=== PATIENT | female | born 1985 ===

== ENCOUNTER → 2021-08-05 07:37 | Outpatient (CLI) | payer OTHER, MEDICAID, SELFPAY ==
--- NOTE | 2021-08-05 07:38 | DI.US.S_ITS ---
PROCEDURE: US OB >= 14 WEEKS FETUS INDICATIONS: ANATOMY SURVEY OUTSIDE/PRIOR DATING DATA: Last menstrual period (LMP): 02/28/2021. LMP-based estimated date of delivery (KHOA): 12/05/2021. First dating scan (date and location): 08/05/2021. Estimated date of delivery (KHOA) from first dating scan: 11/30/2021. TECHNIQUE: Real-time scanning was performed of the fetus, with image documentation and biometric measurements. Endovaginal scanning: No COMPARISON: None. FINDINGS: General: A single living intrauterine gestation is present. Presentation: Transverse. Placenta: Placental position is fundal , without previa. Amniotic fluid index: 16.5 cm, normal range is 5-24 cm. . heart rate: 155 beats per minute. Maternal cervical canal: 6.6 cm long. Normal lower limit is 2.5 cm. biometrics: Biparietal diameter: 56 mm; 23 weeks 1 day Head circumference: 210 mm; 23 weeks 1 day Abdominal circumference: 188 mm; 23 weeks 4 days Femur length: 41 mm; 23 weeks 2 days Composite gestational age from present scan: 23 weeks 2 days Estimated weight and percentile: 594 g, which is at the 84th percentile for gestational age Anatomic survey: Neuro: Ventricles are non-dilated at less than 10 mm. Cisterna magna is normal at 3-11 mm. Cerebellum is normal in size and morphology. Nuchal skin fold: Normal at less than 6 mm between 14-21 weeks gestational age. Face: Nose and lips, facial profile are normal. Spine: No evidence for spina bifida. Heart: 4-chambered heart is present, with normal ventricular outflow tracts. Diaphragm: Diaphragm is intact. Stomach: Left-sided stomach is present. Kidneys: No hydronephrosis. Normal is less than 5 mm in 2nd trimester, less than 7 mm in 3rd trimester. Cord: 3-vessel cord has orthotopic insertion. Bladder: Normal in size. Extremities: All 4 extremities identified. IMPRESSION: 1. Single living intrauterine gestation. 2. No anomalies identified. We strive to produce accurate, complete, and clear reports of imaging services. To assist us in improving patient care, this report was composed using standard report templates and voice recognition software. Therefore, it may contain abnormal punctuation, insertions and/or omissions. Occasional wrong-word or sound-alike substitutions may occur. Though we review the report and make efforts to correct it, we do recommend that the report be read carefully in proper context to recognize any text inaccuracies. Dictated by: Lucio Morales M.D. on 08/08/2021 at 13:30 Approved by: Lucio Morales M.D. on 08/08/2021 at 14:11
== END ==
PROVIDERS: Referring Provider Obstetrics & Gynecology; Visit Provider Obstetrics & Gynecology
DX: Z36.89 Encounter for other specified antenatal screening (principal); Z3A.23 23 weeks gestation of pregnancy
CPT/HCPCS: 76811

== ENCOUNTER → 2021-08-31 09:10 | Outpatient (CLI) | payer OTHER, MEDICAID, SELFPAY ==
[2021-08-31 10:47] LABS: Hematocrit 29.7 % (36-46); Hemoglobin 9.9 g/dL (12.0-16.0)
[2021-08-31 11:29] LABS: GTT (PREG) 1 Hour PP 50gm Dose 146 mg/dL (76-139)
== END ==
PROVIDERS: Referring Provider Obstetrics & Gynecology; Visit Provider Obstetrics & Gynecology
DX: Z34.82 Encounter for supervision of other normal pregnancy, second trimester (principal); Z3A.26 26 weeks gestation of pregnancy
CPT/HCPCS: 36415; 82950; 85014; 85018

== ENCOUNTER → 2021-09-06 07:21 | Outpatient (CLI) | payer OTHER, MEDICAID, SELFPAY ==
[2021-09-06 09:47] LABS: Glucose Fasting Gestational 86 mg/dL (76-95)
[2021-09-06 10:47] LABS: Glucose 1 Hour Gest 148 mg/dL (76-180)
[2021-09-06 10:52] LABS: Glucose 2 Hour Gest 145 mg/dL (76-155)
[2021-09-06 11:03] LABS: Glucose Tol Interp,Gestational INTERPRETATION
[2021-09-06 12:51] LABS: Glucose 3 Hour Gest 107 mg/dL (76-140)
== END ==
PROVIDERS: Referring Provider Obstetrics & Gynecology; Visit Provider Obstetrics & Gynecology
DX: Z34.82 Encounter for supervision of other normal pregnancy, second trimester (principal); R73.09 Other abnormal glucose; Z3A.26 26 weeks gestation of pregnancy
CPT/HCPCS: 36415; 82951; 82952

== ENCOUNTER → 2021-11-08 09:02 | Outpatient (CLI) | payer OTHER, MEDICAID, SELFPAY ==
[2021-11-09 09:32] LABS: Strep Grp B PCR NEG for Grp B Strep
== END ==
PROVIDERS: PCP Pediatrics; Visit Provider Obstetrics & Gynecology
DX: Z34.83 Encounter for supervision of other normal pregnancy, third trimester (principal); Z3A.36 36 weeks gestation of pregnancy
CPT/HCPCS: 87653

== ENCOUNTER → 2021-11-15 09:07 | Outpatient (CLI) | payer OTHER, MEDICAID, SELFPAY | PROVIDERS: PCP Pediatrics; Visit Provider Obstetrics & Gynecology | DX: Z34.83 Encounter for supervision of other normal pregnancy, third trimester (principal) | CPT/HCPCS: 87086 ==

== ENCOUNTER 2021-11-28 05:45 | Inpatient (IN) | payer OTHER, MEDICAID, SELFPAY ==
--- NOTE | 2021-11-27 20:10 | P.HPOB_ITS ---
OB HPI Date/Time Date of admission: 11/28/21 Date Patient Seen: 11/28/21 Time Patient Seen: 07:15 History of Present Condition Chief complaint: Repeat : 2 Para: 1 Estimated Date of Delivery: 12/05/21 Estimated Gestational Age (weeks): 39+0 Narrative: Fadumo Power is a 35 year old , KHOA 12/05/2021 admitted now at 39+0 weeks EGA for repeat section. course has been complicated by maternal obesity with a TWG of only 2.2# but has otherwise been unremarkable. Dates are firm and confirmed by first trimester US. GBS is negative. Indications Operative indications ( section): previous uterine surgery History of Present care: good care and other (Transferred care [facility] at 22 weeks EGA) Dating criteria: LMP confirmed by 1st trimester US Ultrasounds: normal 1st trimester US and normal mid trimester US Obstetrical complications: none Medical complications: none Preadmission Labs Blood type: A (+) positive -: Antibody screen: negative, GBS status: negative, HBsAG: negative, HIV: negative and RPR/VDLR: negative -: Chlamydia screen: not detected and Gonorrhea screen: not detected -: Rubella: immune and Varicella: immune HCT: 29.7 HCAB: negative PAP: Normal Quad screen: Normal 1 hr GTT: 146 3 hr GTT: 1 hr (148), 2 hr (145) and 3 hr (107) Fasting blood glucose: 86 Prior (ies) History: C/S x 1 Evaluation Evaluation Baseline heart rate: 145 Variability: Moderate (11-25) monitor accelerations: Present Monitor Decelerations: Absent Category of Tracing: Reactive Status: Category l PFSH Medical History Chicken pox COVID-19 Morbid obesity with BMI of 50.0-59.9, adult Obesity (BMI 35.0-39.9 without comorbidity) Surgical History History of (~02/10/15) Social History marital status: number of children: 1 household members: spouse and children lives independently: Yes housing: house education level: college occupational status: previously employed current occupational exposures/hazards: No special iram needs: No seatbelt use: always water heater temp set < 120 deg: Yes (Will set when they get into new house) working smoke detector in home: Yes fire extinguisher in home: Yes carbon monox detector in home: Yes firearms in home: No do you feel safe at home: Yes Smoking Status: Former smoker Tobacco: How many years used: 7 quit status: quit date established second hand exposure: No alcohol intake: current substance use type: marijuana during the past year weight has: decreased > 10 lbs well-balanced diet: about half the time daily servings fruits/ve-4 caffeine: No Type(s) of exercise: walking Meds Home Medications and Allergies Home Medications Medication Instructions Recorded Confirmed Type ferrous sulfate 324 mg (65 mg 324 mg PO DAILY anemia #30 tabs 10/25/21 11/23/21 Rx iron) tablet,delayed release prenat.vits,jennifer,[id number] 1 tab PO DAILY #90 tabs 10/25/21 11/23/21 Rx Allergies Allergy/AdvReac Type Severity Reaction Status Date / Time No Known Drug Allergies Allergy Verified 11/28/21 06:10 Review of Systems Review of Systems Narrative: Problem-specific ROS positives included in HPI OB Exam HENMT Head: normal to inspection, normocephalic and atraumatic Eyes General: appearance normal, both eyes and all related structures Resp Effort & Inspection: normal respiratory effort and able to speak in complete sentences Auscultation: clear to auscultation bilaterally Cardio Rate: regular rate Rhythm: regular rhythm Heart Sounds: S1 normal, S2 normal and no murmurs Extremities Lower extremity: Yes normal to inspection GI Inspection: normal to inspection Palpation: Yes soft and Yes no hepatosplenomegaly Uterus Location (Fundal Height): 38 Presentation: vertex Estimated Weight (lbs): 8 Objective Labs Result Diagrams: 11/28/21 05:45 Assessment and Plan Assessment and Plan Assessment and Plan narrative: ASSESSMENT 1. Intrauterine , 39+0 wks EGA 2. Prior section x 1 PLAN 1. Admit for repeat cesaren section 2. See admission orders
[2021-11-28 07:01] LABS: Add Manual Diff / Slide Review NO; Basophils Absolute Auto 200 /uL (0-100); Basophils Percent Auto 1.2 % (0-2); Eosinophils Absolute Auto 300 /uL (0-450); Eosinophils Percent Auto 1.9 % (2-4); Hematocrit 30.5 % (36-46); Hemoglobin 9.9 g/dL (12.0-16.0); Lymphocytes Absolute Auto 2700 /uL (1100-4500); Lymphocytes Percent Auto 20.9 % (25-40); Mean Corpuscular HGB Conc 32.4 % (30-36); Mean Corpuscular Hemoglobin 24.6 PG (26-34); Monocytes Absolute Auto 600 /uL (0-900); Monocytes Percent Auto 4.7 % (3-14); Neutrophils Absolute Auto 9400 /uL (1500-7000); Neutrophils Percent Auto 71.3 % (50-75); Platelet Count 377 X10^3/uL (150-400); Red Blood Cell Count 4.02 X10^6/uL (4.0-5.2); Red Cell Distribution Width 17.5 % (11.6-14.8); White Blood Cell Count 13.2 X10^3/uL (4.5-11.0)
--- NOTE | 2021-11-28 07:48 | PM.PREOP ---
Pre-operative Note COVID-19 COVID-19 status: Negative Result date/Date tested (Pos, Neg/Pending): 11/28/21 Criteria for continued procedure: Non-surgical alternatives not available or appropriate per current SOC Interval Note History & Physical reviewed/Exam performed by Physician: Yes Changes to H&P: No
[2021-11-28 07:51] LABS: COVID19 -Nasal RAPID Negative (Negative)
[2021-11-28] MEDS: CEFAZOLIN VIAL 1 GM in SODIUM CHLORIDE 0.9% 100 ML IV (08:05)
[2021-11-28] MEDS: CEFAZOLIN 2 GM/100 ML PREMIX 100 ML IV (08:05)
--- NOTE | 2021-11-28 08:49 | SUR.OPER ---
Supine on padded OR bed, head on pillow, arms secured on padded arm boards at <90 degrees abduction, legs uncrossed, safety belt at thigh, tape over blanket over lower legs.
[2021-11-28] MEDS: ACETAMINOPHEN IV 1,000 MG/100 ML VIAL 400 MG IV (09:26)
[2021-11-28] MEDS: LACTATED RINGERS 1,000 ML 100 ML IV (09:32)
[2021-11-28 09:45] VITALS: BP 129/64; PULSE 90; RESP 12; TEMP 36.4; O2SAT 100
--- NOTE | 2021-11-28 09:48 | PM.OBCS.1 ---
Operative Date/Time/Diagnoses Date of procedure: 11/28/21 Time of procedure: 08:30 Pre-op diagnosis: Intrauterine gestation, 39+0 weeks EGA Prior section Post-op diagnosis: same Procedure & Clinicians Procedure: Repeat section, low transverse cervical Same procedure as scheduled: Yes Indications: Fadumo Power is a 35 year old , KHOA 12/05/2021 admitted now at 39+0 weeks EGA for repeat section.? course has been complicated by maternal obesity with a TWG of only 2.2# but has otherwise been unremarkable.? Dates are firm and confirmed by first trimester US.? GBS is negative. Surgeon: Cricket Montemayor Shower Screen Installer: Mer Pulliam Reason for Shower Screen Installer: Shower Screen Installer required for the safe, effective, and timely completion of this surgery. Anesthesia Type: Spinal Operative Notes Findings: Viable male infant BW 3620 gms. (7 lbs. 15,7 oz.), Apgars 7/9, delivered from the vertex presentation. Normal gravid anatomy. Closure Type: primary Specimen(s): cord blood Intraoperative meds administered: Ketorolac, Methergine, Pitocin and Tranexamic acid Applied: Catheter Estimated Blood Loss (mL): 800 Blood products transfused: none Procedure in detail: With her informed written consent, the patient was taken to the operating room and placed in the supine position for a repeat section procedure, for the indication(s) above. The abdomen was prepped and draped in the usual manner for section and a pre-surgical timeout was taken per [facility] OR protocol. Once effective anesthesia was confirmed, a 15 cm transverse Pfannenstiel incision was made in the skin and taken down through the subcutaneous tissues to the deep fascia. The deep fascia was incised transversely, the rectus abdominal eyes bluntly and sharply, and the peritoneal cavity entered without difficulty. The lower uterine segment was visualized and the position/presentation palpated. A transverse incision at or above the vesicouterine reflection was made with Metzenbaum scissors and transverse hysterotomy performed near the midline. Amniotomy revealed clear fluid. The incision was extended bilaterally with digital traction and the infant was delivered without difficulty from the vertex presentation. The infant was vigorous and cord clamping delayed for 60 seconds. The placenta was delivered intact using gentle cord traction and fundal massage.The uterine cavity was then cleared of any clot/debris first with a sloppy wet lap tape followed by a dry lap tape. Ring forceps were then applied to the angles and the midline of the incised MARYAM. A primary closure of the uterus was then accomplished with #1 CCGS in a running interlocking stitch followed by a 2nd layer of #1 CCGS in a running interlocking imbricating stitch. One additional nezzlk-ln-diurs suture of #1 CCGS was required to achieve complete hemostasis. Once pelvic hemostasis was assured, the bladder flap and anterior peritoneum were closed with a running 2-0 Vicryl suture and the fascia closed with #1 Vicryl in a running stitch initiated at both angles and tying separately near the midline. The subcutaneous tissues were reapproximated with 2-0 plain catgut suture using inverted interrupted stitches. The skin edges were then brought together with 4-0 Monocryl in a subcuticular closure and the incision was reinforced with half-inch Steri-Strips. An appropriate compression dressing was applied and the patient transferred to PACU for recovery and subsequent transfer to the Center for recuperation. Complications: none [place] Baby 1: Gender: Male Presentation: vertex Position: Left Occiput Anterior Placental Delivery Description: Spontaneous and Expressed Cord Vessel Description: 3 Vessels, Nuchal Cord, Loose and Reduced score (1 min): 7 score (5 min): 9 weight: 7 lb 15.692 oz Post-operative Condition: stable Disposition: PACU Aftercare: routine postop
--- NOTE | 2021-11-28 09:53 | SUR.OPER ---
live baby boy TOB [id number]. Baby, blood and placenta to OB RN.
[2021-11-28 10:00] VITALS: BP 133/65; PULSE 85; RESP 16; O2SAT 100
--- NOTE | 2021-11-28 10:14 | SUR.PHASEI ---
1000: Pt A&Ox4, denies any distress, small amt drainage noted on peripad, VSS, and ready to transfer to room. Telephone report given to receiving RN with time allowed for questions. Bedside handoff of pt to receiving RN with dual fundus check and peripad change, approx 50 mL drainage on pad with 2 clots noted. Left pt in stable condition with RN at bedside.
[2021-11-28 13:10] VITALS: BP 119/60
[2021-11-28] MEDS: ONDANSETRON 4 MG/2 ML INJ IV (13:30)
[2021-11-28 13:52] VITALS: TEMP 35.9
[2021-11-28] MEDS: OXYCODONE IR 5 MG TABLET PO (13:52)
[2021-11-28] MEDS: KETOROLAC 30 MG/ML VIAL IV (17:30)
[2021-11-28] MEDS: ACETAMINOPHEN 325 MG TABLET 650 MG PO (23:41)
[2021-11-29] MEDS: diphenhydrAMINE 25 MG TABLET PO (03:30)
[2021-11-29 06:11] LABS: Add Manual Diff / Slide Review NO; Basophils Absolute Auto 100 /uL (0-100); Basophils Percent Auto 0.8 % (0-2); Eosinophils Absolute Auto 100 /uL (0-450); Eosinophils Percent Auto 0.7 % (2-4); Hematocrit 28.4 % (36-46); Hemoglobin 9.3 g/dL (12.0-16.0); Lymphocytes Absolute Auto 2000 /uL (1100-4500); Lymphocytes Percent Auto 15.6 % (25-40); Mean Corpuscular HGB Conc 32.6 % (30-36); Mean Corpuscular Hemoglobin 24.6 PG (26-34); Mean Corpuscular Volume 75.2 fL (80-100); Monocytes Absolute Auto 700 /uL (0-900); Monocytes Percent Auto 5.7 % (3-14); Neutrophils Absolute Auto 10100 /uL (1500-7000); Neutrophils Percent Auto 77.2 % (50-75); Platelet Count 365 X10^3/uL (150-400); Red Blood Cell Count 3.78 X10^6/uL (4.0-5.2); Red Cell Distribution Width 17.1 % (11.6-14.8); White Blood Cell Count 13.1 X10^3/uL (4.5-11.0)
[2021-11-29] MEDS: ACETAMINOPHEN 325 MG TABLET 650 MG PO ×3 (06:53→19:32)
[2021-11-29] MEDS: IBUPROFEN 600 MG TABLET PO ×3 (06:53→19:32)
--- NOTE | 2021-11-29 07:14 | PM.OBPN.1 ---
Subjective - OB Subjective Patient comments: no complaints, pain well controlled, incisional pain, tolerating diet and flatus present baby status: doing well [place] feeding status: exclusively breast feeding Narrative: Minimal lochia. Ambulating to bathroom without difficulty. No complaints. Date Patient Seen: 11/29/21 Time Patient Seen: 07:14 Exam Vital Signs (past 8 hours): Oxygen Delivery Method Room Air Const General: cooperative and comfortable Nutritional Appearance: average body habitus Orientation: alert and oriented x3 HENMT Head: normal to inspection, atraumatic and abrasion Ears: hearing grossly normal bilaterally Face and sinus: face symmetric Eyes General: appearance normal, both eyes and all related structures Conjunctivae: conjunctivae normal Sclera: sclerae normal EOM: EOM intact bilaterally Neck Neck: normal visual inspection Resp Effort & Inspection: normal respiratory effort and able to speak in complete sentences Auscultation: clear to auscultation bilaterally Cardio Rate: regular rate Rhythm: regular rhythm Heart Sounds: S1 normal, S2 normal and no murmurs GI Inspection: normal to inspection and incision (Surgical dressing clean and dry) Palpation: soft, no hepatosplenomegaly, mass (Firm, mildly tender fundus, U -3) and tender (Mild, diffuse postsurgical tenderness) External Female Exam: other (No significant bleeding noted) Extrem General: no calf tenderness Psych Appearance: grossly normal Mental Status: mental status grossly normal Speech and Movement: speech and movement normal Mood: congruent mood Affect: normal affect Attitude: cooperative Thought Process: normal Thought Content: normal Judgment: judgment good Objective Labs Result Diagrams: 11/29/21 05:58 Labs: Laboratory Results - last 24 hr 11/28/21 11/28/21 11/29/21 06:45 07:33 05:58 WBC 13.1 H RBC 3.78 L Hgb 9.3 L Hct 28.4 L MCV 75.2 L MCH 24.6 L MCHC 32.6 RDW 17.1 H Plt Count 365 Neut % (Auto) 77.2 H Lymph % (Auto) 15.6 L [place] % (Auto) 5.7 Eos % (Auto) 0.7 L Baso % (Auto) 0.8 Neut # (Auto) 56842 H Lymph # (Auto) 2000 [place] # (Auto) 700 Eos # (Auto) 100 Baso # (Auto) 100 SARS-CoV-2 (PCR) Negative Blood Type A Positive Antibody Screen Negative Assessment & Plan Plan day: 1 plan OB: routine postop care Comments: Iron sucrose 200 mg due to anemia. Anticipate discharge either late today or tomorrow morning. Time Spent With Patient Time: Total time spent is greater than 50% in coordination of care (as documented) at patient's floor/unit and/or counseling patient: Time with patient: 15-24 minutes
[2021-11-29] MEDS: DOCUSATE 100 MG CAPSULE 200 MG PO (09:00)
[2021-11-29] MEDS: LANOLIN OINT 7 GM 1 APPLIC TOP (09:30)
[2021-11-30] MEDS: ACETAMINOPHEN 325 MG TABLET 650 MG PO (03:13)
[2021-11-30] MEDS: IBUPROFEN 600 MG TABLET PO ×2 (03:13→10:20)
--- NOTE | 2021-11-30 08:06 | PM.OBDS.1 ---
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 She underwent an uneventful repeat section that morning and the details of the procedure are well summarized on my dictated operative note of that date. Following surgery the patient has done extremely well with prompt return of bowel and bladder function, she is ambulating independently, tolerating a regular diet, and her pain is well controlled with oral pain medications. She will be discharged at this time in an afebrile normotensive condition to home after counseling regarding precautionary symptoms, limitations of activity, medications, and plans for follow-up which will be in 1 week. Medications at discharge include vitamins and iron with vitamin-C daily, oxycodone 10 mg tabs 1 p.o. Q 4-6 as needed for pain, 20, ibuprofen 600 mg p.o. q.6 hours as needed pain, Colace 200 mg p.o. b.i.d. times 14 days. Peripartum Data Delivery Method: Natural Vaginal Laceration Description: None Episiotomy description: None complications: none 1: Gender: Male Status at Discharge Cognitive/behavioral status at discharge: oriented Functional status at discharge: independent ambulation Overall status at discharge: patient is progressing back to baseline Time Spent with Patient Time attestation: Total time spent providing and/or coordinating discharge services: Time spent: Less than 30 minutes Objective Labs Result Diagrams: 11/29/21 05:58 Exam Vital Signs (past 8 hours): Oxygen Delivery Method Room Air Const General: cooperative and comfortable Nutritional Appearance: average body habitus Orientation: alert and oriented x3 HENMT Head: normal to inspection, atraumatic and abrasion Ears: hearing grossly normal bilaterally Face and sinus: face symmetric Eyes General: appearance normal, both eyes and all related structures Conjunctivae: conjunctivae normal Sclera: sclerae normal EOM: EOM intact bilaterally Neck Neck: normal visual inspection Resp Effort & Inspection: normal respiratory effort and able to speak in complete sentences Auscultation: clear to auscultation bilaterally Cardio Rate: regular rate Rhythm: regular rhythm Heart Sounds: S1 normal, S2 normal and no murmurs GI Inspection: normal to inspection and incision (Incision clean and dry, compression dressing replaced with AquaCel) Palpation: soft, no hepatosplenomegaly, mass (Firm, minimally tender fundus, U -5) and tender (Mild, diffuse postsurgical tenderness) External Female Exam: other (No significant bleeding noted) Extrem General: no calf tenderness Psych Appearance: grossly normal Mental Status: mental status grossly normal Speech and Movement: speech and movement normal Mood: congruent mood Affect: normal affect Attitude: cooperative Thought Process: normal Thought Content: normal Judgment: judgment good Discharge Plan Discharge Plan Patient Disposition: Home Provider Discharge Comment: Please review the written instructions you received when you were discharged from the hospital. Your follow-up appointment will be in 1 week and will I look forward to seeing you then. If however in the meanwhile, you have any issues, concerns, or problems, please contact me either through the office phone at [phone] or via the patient portal. Discharge orders & Medications Prescriptions: New ibuprofen 600 mg Tablet 600 mg PO Q6HR PRN (Reason: Fever/Mild Pain (1-3)) Qty: 60 2RF oxycodone 10 mg Tablet 10 mg PO Q4H PRN (Reason: Pain, Severe (7-10)) Qty: 20 0RF Continued ferrous sulfate 324 mg (65 mg iron) tablet,delayed release (DR/EC) 324 mg PO DAILY Qty: 30 3RF Rx Instructions: Take once daily. prenat.vits,jennifer,[id number] Tablet 1 tab PO DAILY Qty: 90 3RF No Action norethindrone (contraceptive) 0.35 mg tablet 0.35 mg PO DAILY Qty: 84 2RF Follow up/Referrals: Eddie Cole MD [Primary Care Provider] - Cricket Montemayor MD [Physician] - 12/06/21 8:30 am (Your one week incision check and dressing removal appointment with Dr. Montemayor is scheduled for December 06@8:30am.) Discharge Health Status Multidrug resistant organism: No MDRO Diet/Activity/Treatments Diet: Diet as Tolerated Activity: As tolerated Other treatments: [id number] Tylenol may also be used for additional pain relief Skin/Wound/Dressing Care Report to your healthcare provider any signs of infection, such as:: chills, fever, increased pain, unusual drainage and unusual redness Dressing: You may shower with the dressing and it will be removed when you return for your 1 week postop appointment Visit Report/Discharge Packet Instructions: DI for , DI for and Nipple Soreness, DI for Prescription Opioid Use Stand Alone Forms: Discharge: Care Discharge Data Primary Care Provider: Eddie Cole
[2021-11-30] MEDS: OXYCODONE IR 10 MG TABLET PO (10:21)
== END 2021-11-30 13:15 | disposition home or self-care (01) | DRG 540 ==
PROVIDERS: Admitting Provider Obstetrics & Gynecology; PCP Pediatrics; Referring Provider Obstetrics & Gynecology; Visit Provider Obstetrics & Gynecology
PROC: 10D00Z1 Extraction of Products of Conception, Low, Open Approach (ICD-10-PCS; CPT 59514; principal; 2021-11-28 07:45)
DX: O34.211 Maternal care for low transverse scar from previous cesarean delivery (principal); O99.214 Obesity complicating childbirth; E66.01 Morbid (severe) obesity due to excess calories; Z3A.39 39 weeks gestation of pregnancy; Z37.0 Single live birth; O99.02 Anemia complicating childbirth
CPT/HCPCS: 36415; 59050; 59514; 85025; 86850; 86900; 86901; 87635; C9803; J0131; J0690; J1885; J2274; J2405; J2590; J2704